=== PATIENT | female | born 1935 | race Caucasian/White ===

== ENCOUNTER 2019-02-02 03:50 | Inpatient (IN) | payer MEDICARE, MEDICAID ==
[~2019-02-02] VITALS: Ht 170.2 cm; Wt 70.3 kg
[~2019-02-02 03:50] MED LIST: ACET250T3 PO; ALBU0.084 NEB; BISA-13 PO; GUAI200T2 PO
[2019-02-02] MEDS ORDERED: ETOMIDATE (2MG/ML) 20ML VIAL IV ONE (03:54)
[2019-02-02 05:17] LABS: Basophils # (auto) 0 uL; Basophils % (auto) 0.3 % (0.0-2.0); Eosinophils # (auto) 0 uL; Hematocrit 34.6 % (36.0-46.0); Hemoglobin 11.2 g/dL (12.2-16.2); Lymphocytes # (auto) 0.5 uL; Lymphocytes % (auto) 4.9 % (10.0-50.0); Mean Corpuscular Hemoglobin 31.1 pg (28.0-32.0); Mean Corpuscular Hgb Conc. 32.5 g/dL (32.0-36.0); Mean Corpuscular Volume 95.8 fL (80.0-100.0); Monocytes # (auto) 0.3 uL; Monocytes % (auto) 3.6 % (0.0-12.0); Neutrophils # (auto) 8.8 uL; Neutrophils % (auto) 91.2 % (37.0-80.0); Nucleated Red Blood Cells % 0.1 %; Platelet Count (auto) 315 10^3/uL (140-450); Red Blood Cells 3.61 10^6/uL (4.0-5.20); Red Cell Distribution Width 16.1 % (11.8-14.3); White Blood Cell 9.7 10^3/uL (4.4-10.8)
[2019-02-02 05:48] LABS: Urine Amorphous Crystal FEW /hpf (None Seen); Urine Bacteria FEW /hpf (None Seen); Urine Blood Negative /uL (Negative); Urine Hyaline Cast MANY /lpf (0 - 2); Urine Mucus FEW (None Seen); Urine Specific Gravity 1.015 (1.001-1.035); Urine WBC 2 /hpf (0 - 5)
[2019-02-02 05:53] LABS: Albumin 1.9 g/dL (3.4-5.0); Calcium 7.7 mg/dL (8.5-10.1); Potassium 4.3 mmol/L (3.5-5.1)
[2019-02-02 05:59] LABS: BUN/Creatinine Ratio 18.9; Bilirubin, Total 0.2 mg/dL (0.2-1.0); Total Protein 6.3 g/dL (6.4-8.2)
[2019-02-02] MEDS: guaiFENesin 200 MG/10 ML UD PO SCH ×2 (06:00→11:21)
[2019-02-02] MEDS ORDERED: SODIUM CHLORIDE 0.9% 1,000 ML IV SCH (06:37)
[2019-02-02] MEDS ORDERED: NITROGLYCERIN 0.4 MG SL TAB SL PRN (06:45)
[2019-02-02] MEDS ORDERED: HYDROcodone-ACET 5/325MG TAB PO PRN (06:45)
[2019-02-02] MEDS ORDERED: IPRATROPIUM BROM 0.5 MG/2.5ML INH SOL NEB PRN (06:45)
[2019-02-02] MEDS ORDERED: LORazepam 0.5 MG TAB PO PRN (06:45)
[2019-02-02] MEDS ORDERED: ALBUTEROL SULF 2.5 MG/0.5ML(0.5%) NEB SOLN NEB PRN (06:45)
[2019-02-02] MEDS ORDERED: ACETAMINOPHEN 325 MG TAB PO PRN (06:45)
[2019-02-02] MEDS ORDERED: DOCUSATE SOD 100 MG CAP PO PRN (06:45)
[2019-02-02] MEDS ORDERED: ONDANSETRON HCL 4 MG/2 ML VIAL IV PRN (06:45)
[2019-02-02] MEDS ORDERED: MORPHINE SULFATE 4 MG/ML SYR/VIAL IV PRN (06:45)
--- NOTE | 2019-02-02 08:25 | NUR ---
RECEIVED REPORT FROM OBDULIO GALLEGOS.
[2019-02-02 08:45] VITALS: BP 117/46
[2019-02-02 09:31] VITALS: BP 115/61
[2019-02-02 09:40] VITALS: BP 115/61
[2019-02-02] MEDS ORDERED: cefTRIAXone 1GM/50ML D5W 50 ML IV SCH (10:00)
[2019-02-02] MEDS ORDERED: FUROSEMIDE 40 MG/4 ML VIAL IV ONE (10:30)
--- NOTE | 2019-02-02 12:11 | NUR ---
Discharge planning per SS consult, patient has orders for an hospice evaluation. Patient's son choose [facility] [phone]. Referral faxed [phone]. Acceptance is pending.
[2019-02-02 13:00] VITALS: BP 113/55
--- NOTE | 2019-02-02 16:09 | NUR ---
assessment Patient is a 83 year old female who has been transferred from [facility]. Per patients son Adam patient will return to [facility] on [facility] hospice. I informed Adam that a hospice order has come in for patient. Adam informed me he has been talking to [facility] prior to this admission and patient will return to [facility] custodially on hospice. Shayy ELLISON has sent [facility] hospice the MD order. Per Adam patient has 02 and fww for home use. Patient does not have an advanced directive. Patients PCP is Dr Warren. Adam verbalized understanding and agreed to discharge plan to SNF on hospice. Addendum: 02/02/19 at 1613 by Jamilah CROSS Amended: Links added.
--- NOTE | 2019-02-02 16:34 | NUR ---
REPORT GIVEN TO OBDULIO MILIAN.
--- NOTE | 2019-02-02 16:55 | NUR ---
Discharge planning per SS consult, patient has orders to dc with Hospice. Referral sent to [facility], received a call from [facility] and was advised that they will accept this patient onto services. Transportation has been arranged with [facility] and scheduled milk pickup driver time is between 4-5 pm. Nurse Carr is aware of dc plan.
--- NOTE | 2019-02-02 17:13 | NUR ---
Discharge instructions given as ordered. Encourage to follow up with PMD as instructed. All questions and concerns addressed. FAMILY verbalized understanding. Medication reconciliation form completed and copy given to patient. IV removed with catheter intact, pressure dressing applied. Telemetry unit returned to ICU. Patient taken to vehicle via GURNEY with all personal belongings, accompanied by TRANSPORT staff and family member. No distress noted at time of departure.
== END 2019-02-02 17:12 | disposition hospice, home (50) | DRG 189 ==
LOC: EDBD 03:50 → ER 03:56 → TELE 03:57 → TELE-CENTR 08:52
PROVIDERS: ADMIT Hospitalist; ATTEND Internal Medicine
DX: J96.20 Acute and chronic respiratory failure, unspecified whether with hypoxia or hypercapnia (principal); J18.9 Pneumonia, unspecified organism; J44.1 Chronic obstructive pulmonary disease with (acute) exacerbation; E44.0 Moderate protein-calorie malnutrition; C34.90 Malignant neoplasm of unspecified part of unspecified bronchus or lung; N13.30 Unspecified hydronephrosis; Z66 Do not resuscitate; I11.0 Hypertensive heart disease with heart failure; Z51.5 Encounter for palliative care; I50.9 Heart failure, unspecified; Z87.891 Personal history of nicotine dependence; Z79.899 Other long term (current) drug therapy; Z68.24 Body mass index [BMI] 24.0-24.9, adult
CPT/HCPCS: 36415; 71045; 80053; 81001; 83605; 83880; 84484; 85025; 87040; 87081; 87086; 93005; 94640; 96360; 99291; G0378; J0696